=== PATIENT | male | born 1960 | race Caucasian/White ===

== ENCOUNTER 2019-08-24 12:54 | Outpatient (CLI) | payer OTHER ==
[~2019-08-24 12:54] MED LIST: ATOR10TA9 PO; LISI-170 PO; LORA1TAB PO; fluticasone
== END 2019-08-24 23:59 | disposition home or self-care (01) ==
LOC: STARSUM 12:54
PROVIDERS: ATTEND Neurological Surgery
DX: Z01.818 Encounter for other preprocedural examination (principal); M48.061 Spinal stenosis, lumbar region without neurogenic claudication
CPT/HCPCS: 93005